=== PATIENT | female | born 1960 | race African-American/Black ===

== ENCOUNTER → 2016-06-05 15:38 | Outpatient (CLI) | payer MEDICARE ==
[~2016-06-05 15:38] MED LIST: CYCLOBENZAPRINE10 MG PO; NEURONTIN 300300 MG PO; OXYCODONE HCL E20 MG PO; PERCOCET 10/3251 TA1 PO; ROBAXIN-750750 MG PO; SLOW MAG PO; SLOW-MAG 64 MG64 MG PO; ULTRAM50 MG PO; VOLTAREN100 MG PO
== END | disposition home or self-care (01) ==
LOC: D.LABREF 15:38
DX: M17.12 Unilateral primary osteoarthritis, left knee (principal); Z11.8 Encounter for screening for other infectious and parasitic diseases

== ENCOUNTER → 2016-11-17 16:44 | Outpatient (CLI) | payer MEDICARE ==
[2016-01-29 14:06] VITALS: BMI 32.8
== END | disposition home or self-care (01) ==
LOC: D.MAMMO 15:15
DX: Z12.31 Encounter for screening mammogram for malignant neoplasm of breast (principal)

== ENCOUNTER → 2018-04-17 17:14 | Outpatient (CLI) | payer MEDICARE ==
[2016-01-29 14:06] VITALS: BMI 32.8
== END | disposition home or self-care (01) ==
LOC: D.MAMMO 15:30
DX: Z12.31 Encounter for screening mammogram for malignant neoplasm of breast (principal)

== ENCOUNTER → 2019-01-08 10:13 | Outpatient (CLI) | payer MEDICARE ==
[2016-01-29 14:06] VITALS: BMI 32.8
== END | disposition home or self-care (01) ==
LOC: D.HCCARDIO 10:13
PROVIDERS: ATTEND Internal Medicine Cardiovascular Disease
DX: I20.9 Angina pectoris, unspecified (principal)

== ENCOUNTER 2019-10-07 09:30 | Outpatient (CLI) | payer MEDICARE ==
[2016-01-29 14:06] VITALS: BMI 32.8
== END 2019-10-07 10:30 | disposition home or self-care (01) ==
LOC: D.MAMMO 09:30
PROVIDERS: ATTEND Emergency Medicine
DX: N64.4 Mastodynia (principal)